=== PATIENT | male | born 1980 | race Caucasian/White ===

== ENCOUNTER 2016-10-15 18:08 | Emergency (ER) | payer MEDICARE, OTHER ==
[~2016-10-15 18:08] MED LIST: ZOFR4TAB3 SL
[2016-10-15 18:11] VITALS: BP 130/80; PULSE 104; RESP 16; TEMP 98.8; O2SAT 98
[2016-10-15 18:51] VITALS: BP 136/78; PULSE 89; RESP 18; TEMP 98.6; O2SAT 96
--- NOTE | 2016-10-15 20:00 | PD ---
HPI Chief Complaint: Cold / Flu Symptoms Time Seen by Provider: 18:53 Travel History International Travel<30 days: No Contact w/Intl Traveler<30days: No Traveled to known affect area: No History of Present Illness HPI 36-year-old male presents with cough and congestion. The patient reports white productive cough. He denies a fevers, chills. He states the cough is been present for 1-1/2 days. He does have ill contact at home with his child with URI and vomiting. There are no body aches. There are no other symptoms. PFSH Past Medical History Depression: Yes High Cholesterol: Yes Diminished Hearing: No Hypertension: Yes Psychiatric: Yes (PTSD) Past Surgical History Other Surgery: Yes (NOSE REPAIR) Social History Alcohol Use: No Tobacco Use: No Substance Use: No Allergies-Medications (Allergen,Severity, Reaction): Coded Allergies: No Known Allergies (Unverified , 03/04/16) Reported Meds & Prescriptions Reported Meds & Active Scripts Active Zofran ODT (Ondansetron HCl) 4 Mg Tab 4 Mg SL Q6H PRN FOR NAUSEA/VOMITING Review of Systems Except as stated in HPI: all other systems reviewed are Neg General / Constitutional: No: Fever, Chills Cardiovascular: No: Chest Pain or Discomfort, Palpitations Respiratory: Positive: Cough (productive with white phlegm), No: Wheezing Gastrointestinal: No: Nausea, Vomiting Physical Exam Narrative GENERAL: Well-nourished, well-developed patient. SKIN: Focused skin assessment warm/dry. HEAD: Normocephalic/atraumatic. EYES: No scleral icterus. No injection or drainage. NECK: Supple, trachea midline. No JVD or lymphadenopathy. CARDIOVASCULAR: Regular rate and rhythm without murmurs, gallops, or rubs. RESPIRATORY: Breath sounds equal and clear bilaterally. MUSCULOSKELETAL: No cyanosis, or edema. NEUROLOGICAL: Awake and alert. Cranial nerves II through XII intact. Motor grossly within normal limits. Five out of 5 muscle strength in all muscle groups. Normal speech. Data Data Last Documented VS Vital Signs Date Time Temp Pulse Resp B/P Pulse Ox O2 Delivery O2 Flow Rate FiO2 10/15/16 18:51 98.6 89 18 136/78 96 Room Air Orders Influenzae A/B Antigen (10/15/16 18:53) [facility] Medical Decision Making Medical Screen Exam Complete: Yes Emergency Medical Condition: Yes Differential Diagnosis Influenza versus bronchitis versus Narrative Course 36-year-old generally presents with cough and congestion. The patient has clear sounds on auscultation. He is nontoxic-appearing. He does have a hacking cough with productive white phlegm. He'll be treated with guaifenesin before meals for the cough. He's been warned about the sedative effects of the codeine. He is instructed not to drive or drink alcohol taking medication. Diagnosis Primary Impression: Viral upper respiratory infection Med/Other Pt SpecificInfo: Prescription(s) given Scripts Guaifenesin-Codeine Liq (Guaifenesin AC Liq)100-10 Mg/5 Ml Syrp10 Ml PO Q6H PRN (COUGH) #1 BOTTLE Ref 0 Prov:Galindo Garner MD 10/15/16 Disposition: 01 DISCHARGE HOME Condition: Stable Galindo Garner MD Oct 15, 2016 20:00
[2016-10-15] MEDS ORDERED: GUAISYP4 PO (20:01)
[2016-10-15] MEDS ORDERED: ZOFR4TAB PO (20:26)
== END 2016-10-15 20:38 | disposition home or self-care (01) ==
LOC: NEPD 18:08
DX: J06.9 Acute upper respiratory infection, unspecified (principal); E78.00 Pure hypercholesterolemia, unspecified
CPT/HCPCS: 87804; 99283

== ENCOUNTER 2017-04-11 08:45 | Emergency (ER) | payer OTHER ==
[~2017-04-11] VITALS: Ht 188 cm; Wt 140.0 kg
[~2017-04-11 08:45] MED LIST changes: +GUAISYP4 PO; +ZOFR4TAB PO
[2017-04-11 08:47] VITALS: BP 151/90; PULSE 97; RESP 14; TEMP 98.3; O2SAT 98
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
[2017-04-11] MEDS ORDERED: ADDE30XR PO (10:06)
[2017-04-11] MEDS ORDERED: HYDR12.57 PO (10:06)
[2017-04-11] MEDS ORDERED: CYCL1TAB29 PO (10:15)
[2017-04-11] MEDS ORDERED: predniSONE 20 MG TAB PO ONE (10:15)
[2017-04-11] MEDS ORDERED: HYDR-3533 PO ×2 (10:15→10:16)
[2017-04-11] MEDS ORDERED: PRED10PA2 PO (10:15)
[2017-04-11] MEDS ORDERED: KETOROLAC TROMETHAMINE 60 MG/2 ML (IM) VIAL IM ONE (10:15)
[2017-04-11] MEDS ORDERED: DICL1SOL3 TOPICAL (10:24)
[2017-04-11] MEDS ORDERED: CETI10 PO (10:24)
[2017-04-11] MEDS ORDERED: MIRT30TA PO (10:24)
[2017-04-11] MEDS ORDERED: IBUP800T23 PO (10:24)
[2017-04-11] MEDS ORDERED: VENL150C39 PO (10:24)
[2017-04-11] MEDS ORDERED: VITA100064 PO (10:24)
[2017-04-11] MEDS ORDERED: FLUT50SP EACH NARE (10:24)
[2017-04-11] MEDS ORDERED: CLON0.5T PO (10:24)
[2017-04-11] MEDS ORDERED: BACL10TA PO (10:24)
[2017-04-11] MEDS ORDERED: PRAV40TA2 PO (10:24)
[2017-04-11] MEDS ORDERED: POTA-163 PO (10:24)
== END 2017-04-11 11:09 | disposition home or self-care (01) ==
LOC: NEPD 08:45
DX: S39.012A Strain of muscle, fascia and tendon of lower back, initial encounter (principal); V43.52XA Car driver injured in collision with other type car in traffic accident, initial encounter; I10 Essential (primary) hypertension
CPT/HCPCS: 96372; 99284; J1885; J7512

== ENCOUNTER 2017-04-15 13:25 | Emergency (ER) | payer MEDICARE, OTHER ==
[~2017-04-15 13:25] MED LIST changes: +ADDE30XR PO; +BACL10TA PO; +CETI10 PO; +CLON0.5T PO; +CYCL1TAB29 PO; +DICL1SOL3 TOPICAL; +FLUT50SP EACH NARE; -GUAISYP4 PO; +HYDR-3533 PO; +HYDR12.57 PO; +IBUP800T23 PO; +MIRT30TA PO; +POTA-163 PO; +PRAV40TA2 PO; +PRED10PA2 PO; +VENL150C39 PO; +VITA100064 PO; -ZOFR4TAB PO; -ZOFR4TAB3 SL
[2017-04-15 13:27] VITALS: BP 168/94; PULSE 102; RESP 12; TEMP 98.4; O2SAT 95
== END 2017-04-15 15:52 | disposition left against medical advice (07) ==
LOC: NED 13:25
DX: Z04.1 Encounter for examination and observation following transport accident (principal)
CPT/HCPCS: 99281

== ENCOUNTER 2017-04-21 19:44 | Emergency (ER) | payer OTHER ==
[2017-04-21 19:48] VITALS: BP 155/97; PULSE 86; RESP 20; TEMP 98.6; O2SAT 100
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
[2017-04-21 21:09] VITALS: BP 122/76; PULSE 72; RESP 18; TEMP 98.5; O2SAT 97
--- NOTE | 2017-04-21 21:20 | RADRPT ---
EXAM DATE/TIME: 04/21/2017 20:32 [facility] COMPARISON: No previous studies available for comparison. INDICATIONS : Chest pain. MEDICAL HISTORY : None. SURGICAL HISTORY : Lumbar discogram. ENCOUNTER: Initial ACUITY: 1 week PAIN SCORE: 7/10 LOCATION: Bilateral chest FINDINGS: A single view of the chest demonstrates mild basilar airspace disease. No effusion. No pneumothorax. Heart size prominent. CONCLUSION: 1. Mild basilar airspace disease. Differential diagnosis includes atelectasis or pneumonia. Porfirio Gonzales MD on April 21, 2017 at 21:17 Board Certified Radiologist. This report was verified electronically.
--- NOTE | 2017-04-21 21:21 | RADRPT ---
EXAM DATE/TIME: 04/21/2017 20:37 [facility] COMPARISON: No previous studies available for comparison. INDICATIONS : Neck and back pain. MEDICAL HISTORY : None. SURGICAL HISTORY : Lumbar discogram. ENCOUNTER: Initial ACUITY: 1 week PAIN SCORE: 7/10 LOCATION: Cervical spine FINDINGS: Two projection examination was performed. There is normal alignment and curvature of the vertebral b odies down to the level of C7. No evidence of fracture or subluxation. Vertebral body height is rubio ntained. The disc spaces are maintained. The prevertebral soft tissues are of normal thickness. Th e atlanto-axial articulation is intact. CONCLUSION: Unremarkable limited examination of the cervical spine. Porfirio Gonzales MD on April 21, 2017 at 21:18 Board Certified Radiologist. This report was verified electronically.
--- NOTE | 2017-04-21 21:22 | RADRPT ---
EXAM DATE/TIME: 04/21/2017 20:43 [facility] COMPARISON: No previous studies available for comparison. INDICATIONS : Neck and back pain. MEDICAL HISTORY : None. SURGICAL HISTORY : Lumbar discogram. ENCOUNTER: Initial ACUITY: 1 week PAIN SCORE: 7/10 LOCATION: Thoracic spine FINDINGS: There is normal alignment of the thoracic vertebral bodies. Vertebral body height is maintained. No evidence of fracture or subluxation. Pedicles are intact at all levels. The paravertebral reflecti ons are not thickened. CONCLUSION: Normal examination for a patient of this age. Porfirio Gonzales MD on April 21, 2017 at 21:19 Board Certified Radiologist. This report was verified electronically.
--- NOTE | 2017-04-21 21:23 | RADRPT ---
EXAM DATE/TIME: 04/21/2017 20:43 [facility] COMPARISON: No previous studies available for comparison. INDICATIONS : Neck and back pain. MEDICAL HISTORY : None. SURGICAL HISTORY : Lumbar discogram. ENCOUNTER: Initial ACUITY: 1 week PAIN SCORE: 7/10 LOCATION: Lumbar spine. FINDINGS: No acute fracture. Mild degenerative disc disease. Grade 1 retrolisthesis of L4 on L5, likely degener ative in nature. CONCLUSION: 1. No acute fracture. Grade 1 retrolisthesis of L4 on L5. Porfirio Gonzales MD on April 21, 2017 at 21:20 Board Certified Radiologist. This report was verified electronically.
[2017-04-21] MEDS ORDERED: ROBA750T PO (21:36)
[2017-04-21] MEDS ORDERED: MOBI15TA PO (21:36)
[2017-04-21 22:34] VITALS: BP 135/82
--- NOTE | 2017-04-22 13:28 | EKG ---
Date Performed: 04/21/2017 Time Performed: 19:47:54 PTAGE: 37 years EKG: Sinus rhythm MODERATE VOLTAGE CRITERIA FOR LVH, CONSIDER NORMAL VARIANT BORDERLINE ECG INTERPRETATION BASED ON A DEFAULT AGE OF 40 YEARS NO PREVIOUS TRACING DOCTOR: Indra Varghese Interpretating Date/Time 04/22/2017 13:27:42
== END 2017-04-21 22:55 | disposition home or self-care (01) ==
LOC: PHED 19:44
DX: S16.1XXD Strain of muscle, fascia and tendon at neck level, subsequent encounter (principal); S29.019D Strain of muscle and tendon of unspecified wall of thorax, subsequent encounter; S39.012D Strain of muscle, fascia and tendon of lower back, subsequent encounter; R51 Headache; R07.89 Other chest pain; R06.02 Shortness of breath; R94.31 Abnormal electrocardiogram [ECG] [EKG]; I10 Essential (primary) hypertension; E78.00 Pure hypercholesterolemia, unspecified; Z86.59 Personal history of other mental and behavioral disorders; V49.88XD Car occupant (driver) (passenger) injured in other specified transport accidents, subsequent encounter
CPT/HCPCS: 71010; 72040; 72072; 72100; 93005; 99284